=== PATIENT | female | born 1950 | race Caucasian/White ===

== ENCOUNTER 2016-11-07 05:25 | Inpatient (IN) | payer BC, OTHER ==
--- NOTE | 2016-09-25 10:10 | HISTORY & PHYSICAL EXAMINATION ---
DATE OF ADMISSION: 10/28/2016 CHIEF COMPLAINT: Right knee replacement. HISTORY OF PRESENT ILLNESS: Deja is a 65-year-old female who presents for preoperative evaluation prior to right knee replacement. She has been having pain in this knee for several years now, which has gradually worsened, now affecting daily activities including walking, standing, going up and down steps. She has tried oral anti-inflammatories including ibuprofen and Aleve, she also had multiple cortisone injections and viscosupplementation with no relief. At this point in time, she has failed conservative measures and would like to proceed with a right knee replacement. PAST MEDICAL HISTORY: High cholesterol. ALLERGIES: No known drug allergies. CURRENT MEDICATIONS: 1. Atorvastatin 20 mg daily. 2. Calcium. 3. Multivitamin. PAST SURGICAL HISTORY: 1. Left knee replacement. 2. Knee arthroscopy in 2005 with partial meniscectomy. FAMILY HISTORY: Significant for mother with diabetes, mother and father both with high blood pressure, both parents with high cholesterol. SOCIAL HISTORY: The patient is . Consumes 2-3 alcoholic beverages per week. Denies a history of smoking or tobacco use. No other tobacco use. REVIEW OF SYSTEMS: Otherwise negative. Please see HPI for pertinent positives. PHYSICAL EXAMINATION: GENERAL: A 65-year-old female in no acute distress, alert and oriented x3. HEENT: Normocephalic, atraumatic. CARDIAC: Regular rate and rhythm. No murmurs or gallops appreciated. Resting pulse 80 beats per minute. LUNGS: Clear to auscultation without rales or wheeze bilaterally. ABDOMEN: Soft, nontender. Bowel sounds present. EXTREMITIES: Right lower extremity is neurovascularly intact. Calves are soft and nontender. DP pulse +2. Demonstrates good quad tone. Straight leg raise without lag. No erythema or warmth. Has mild effusion. Overall has varus alignment. Has positive crepitation with motion. Range of motion is 0/5/10. IMAGING: Reviewed of the right knee shows findings consistent with degenerative joint disease including joint space narrowing, subchondral sclerosis and varus alignment. She also has degenerative changes of the patellofemoral joint. IMPRESSION: 1. Right knee degenerative joint disease. 2. High cholesterol. PLAN: Further care was discussed with patient. At this point in time, she has failed conservative measures and would like to proceed with a right knee replacement. We will place on aspirin 81 mg p.o. b.i.d. for a month postop. Otherwise, has no other questions or concerns, and did not have patient's account number at the time of dictation and therefore used her date of . [place]
[2016-09-25 14:23] VITALS: BMI 25.0
--- NOTE | 2016-09-25 14:58 | PAT Medication Instructions ---
Service Date Sep 25, 2016. Current Home Medication List Atorvastatin (Lipitor), 20 MG PO QAM Calcium (Caltrate), 600 MG PO QAM Multivitamin (Multivitamin), 1 TAB PO QAM [Fenoprofen], 1 TAB PO QAM Medication Instructions For Your Scheduled Surgery - Check with surgeon for instructions: [Fenoprofen], 1 TAB PO QAM - Hold the following medications the morning of surgery: Calcium (Caltrate), 600 MG PO QAM Multivitamin (Multivitamin), 1 TAB PO QAM - Take the following medications the morning of surgery with a sip of water: Atorvastatin (Lipitor), 20 MG PO QAM If you have any questions please call us at [phone] (Monique Blunt PA-C) or [phone] or [phone]
[2016-09-25 15:35] LABS: BASO % 0.4 %; BASO ABS # 0.02 K/uL (0-0.2); COMPLETE YES; EOS % 2.4 %; HEMATOCRIT 36.6 % (37-47); IG% 0.2 %; LYMPH % 25.6 %; MEAN CELL VOLUME 84.7 fL (80-100); MEAN CORPUSCULAR HEMOGLOBIN 28.5 pg (25-34); MEAN CORPUSCULAR HGB CONC 33.6 g/dl (32-36); MEAN PLATELET VOLUME 9.6 fL (7.4-10.4); MONO % 12.6 %; NEUT % 58.8 %; PLATELET COUNT 254 K/uL (130-400); RED BLOOD COUNT 4.32 M/uL (4.2-5.4); WHITE BLOOD COUNT 5.46 K/uL (4.8-10.8)
--- NOTE | 2016-09-25 15:42 | DIAGNOSTIC IMAGING REPORT ---
TWO VIEW CHEST CLINICAL HISTORY: Preoperative examination. FINDINGS: PA and lateral chest radiographs are compared to study dated 08/30/2007. The cardiomediastinal silhouette is unremarkable. There is mild atherosclerotic calcification of the thoracic aorta. The lungs and pleural spaces are clear. There is no pneumothorax. The skeletal structures are osteopenic. The bony thorax appears intact. IMPRESSION: No active disease in the chest. Electronically signed by: Herman Winchester M.D. 09/25/2016 3:41 PM
[2016-09-25 15:46] LABS: PROTHROMBIN TIME (PATIENT) 10.7 SECONDS (9.0-12.0)
[2016-09-25 17:49] LABS: BUN/CREATININE RATIO 28.3 (10-20); CREATININE 0.98 mg/dl (0.60-1.20); POTASSIUM 3.7 mmol/L (3.5-5.1)
[2016-09-25 20:42] LABS: CALCIUM 9.2 mg/dl (8.5-10.1)
[2016-09-26 07:34] LABS: ESTIMATED AVERAGE GLUCOSE 120 mg/dl; HA1C FLAG Normal (Normal)
[2016-11-07] VITALS (8 sets, daily range): BP systolic 127–172; BP diastolic 75–93; PULSE 70–79; TEMP 36.3–36.8; O2SAT 94–99; Ht 167.6 cm; Wt 69.9 kg
[~2016-11-07] VITALS: Ht 167.6 cm; Wt 69.9 kg
[~2016-11-07 05:25] MED LIST: ATOR-22 PO; CALCTAB5 PO; FENOPROFEN PO; MULT-506 PO
[2016-11-07] MEDS ORDERED: FAMOTIDINE 20 MG TAB PO SCH (06:00)
[2016-11-07] MEDS ORDERED: CeleBREX 200 MG CAP PO SCH (06:00)
[2016-11-07] MEDS ORDERED: ROPIVACAINE 5MG/ML 30 ML 150 MG, BUPIVACAINE/EPINEPHR 0.5% MPF 30 ML, KETOROLAC TROMETH... INFIL SCH ×7 (06:00)
[2016-11-07] MEDS ORDERED: DEXAMETHASONE 4 MG TAB PO SCH (06:00)
[2016-11-07] MEDS ORDERED: CEFAZOLIN 1000MG/55 ML D5W 55 ML IV SCH (06:00)
[2016-11-07] MEDS ORDERED: CEFAZOLIN 1000MG/55 ML D5W IV SCH (06:00)
[2016-11-07] MEDS ORDERED: METOCLOPRAMIDE HCL 10 MG TAB PO SCH (06:00)
[2016-11-07] MEDS ORDERED: LACTATED RINGER'S 1000ML IV SCH (06:00)
[2016-11-07] MEDS ORDERED: GABAPENTIN 300 MG CAP PO SCH (06:00)
[2016-11-07] MEDS ORDERED: ACETAMINOPHEN 500 MG TAB PO SCH (06:00)
[2016-11-07] MEDS ORDERED: LACTATED RINGER'S 500 ML IV SCH (06:00)
[2016-11-07] MEDS ORDERED: NURSING VERBAL MED ORDER ONE (06:15)
[2016-11-07] MEDS ORDERED: BUPIVACAINE 0.5 % 5 MG/1 ML PF 10ML VIAL ONE (06:29)
[2016-11-07] MEDS ORDERED: ONDANSETRON INJ 2 MG/ML 2 ML VIAL ONE (06:43)
[2016-11-07] MEDS ORDERED: DEXAMETHASONE SOD INJ 4 MG/ML VIAL ONE (06:43)
[2016-11-07] MEDS ORDERED: FENTANYL CITRATE INJ 50 MCG/1 ML 2 ML VIAL ONE (06:43)
[2016-11-07] MEDS ORDERED: LIDOCAINE HCL 2% 2 ML VIAL (20MG/ML) ONE (06:43)
[2016-11-07] MEDS ORDERED: MIDAZOLAM HCL 1 MG/ML 2ML VIAL ONE ×2 (06:43→07:24)
[2016-11-07] MEDS ORDERED: PROPOFOL IV EMULSION 10 MG/ML 20 ML VIAL IV ONE (06:43)
[2016-11-07] MEDS ORDERED: ORTHO JOINT ANESTHETIC ONE (06:54)
[2016-11-07] MEDS ORDERED: ATROPINE SULFATE 0.1 MG/ML 5ML SYR IV PRN (07:00)
[2016-11-07] MEDS ORDERED: EpHEDrine SULFATE INJ 50 MG/ML AMP IV PRN (07:00)
[2016-11-07] MEDS ORDERED: ONDANSETRON INJ 2 MG/ML 2 ML VIAL IV PRN ×2 (07:00→09:00)
[2016-11-07] MEDS ORDERED: FENTANYL CITRATE INJ 50 MCG/1 ML 2 ML VIAL IV PRN (07:00)
[2016-11-07] MEDS: TRANEXAMIC ACID INJ 1,000 MG in SODIUM CHLORIDE 0.9% 100ML 100 ML IV SCH ×2 (07:01→11:06)
--- NOTE | 2016-11-07 07:10 | History and Physical ---
History & Physical DATE OF ADMISSION: 11/07/2016 CHIEF COMPLAINT: Right knee replacement. HISTORY OF PRESENT ILLNESS: Deja is a 65-year-old female who presents for preoperative evaluation prior to right knee replacement. She has been having pain in this knee for several years now, which has gradually worsened, now affecting daily activities including walking, standing, going up and down steps. She has tried oral anti-inflammatories including ibuprofen and Aleve, she also had multiple cortisone injections and viscosupplementation with no relief. At this point in time, she has failed conservative measures and would like to proceed with a right knee replacement. PAST MEDICAL HISTORY: High cholesterol. ALLERGIES: No known drug allergies. CURRENT MEDICATIONS: 1. Atorvastatin 20 mg daily. 2. Calcium. 3. Multivitamin. PAST SURGICAL HISTORY: 1. Left knee replacement. 2. Knee arthroscopy in 2005 with partial meniscectomy. FAMILY HISTORY: Significant for mother with diabetes, mother and father both with high blood pressure, both parents with high cholesterol. SOCIAL HISTORY: The patient is . Consumes 2-3 alcoholic beverages per week. Denies a history of smoking or tobacco use. No other tobacco use. REVIEW OF SYSTEMS: Otherwise negative. Please see HPI for pertinent positives. PHYSICAL EXAMINATION: GENERAL: A 65-year-old female in no acute distress, alert and oriented x3. HEENT: Normocephalic, atraumatic. CARDIAC: Regular rate and rhythm. No murmurs or gallops appreciated. Resting pulse 80 beats per minute. LUNGS: Clear to auscultation without rales or wheeze bilaterally. ABDOMEN: Soft, nontender. Bowel sounds present. EXTREMITIES: Right lower extremity is neurovascularly intact. Calves are soft and nontender. DP pulse +2. Demonstrates good quad tone. Straight leg raise without lag. No erythema or warmth. Has mild effusion. Overall has varus alignment. Has positive crepitation with motion. Range of motion is 0/5/10. IMAGING: Reviewed of the right knee shows findings consistent with degenerative joint disease including joint space narrowing, subchondral sclerosis and varus alignment. She also has degenerative changes of the patellofemoral joint. IMPRESSION: 1. Right knee degenerative joint disease. 2. High cholesterol. PLAN: Further care was discussed with patient. At this point in time, she has failed conservative measures and would like to proceed with a right knee replacement. We will place on aspirin 81 mg p.o. b.i.d. for a month postop. Otherwise, has no other questions or concerns
--- NOTE | 2016-11-07 07:11 | History & Physical Bridge Note ---
H&P Re-Evaluation Bridge Note: I have examined the patient, reviewed the History & Physical and in the interval since the performance of the History & Physical I have noted the following changes of clinical significance: No changes noted
[2016-11-07] MEDS ORDERED: BACITRACIN 50000 UNIT VIAL IR ONE (08:03)
--- NOTE | 2016-11-07 08:11 | [facility] Post Operative Brief Note ---
Immediate Operative Summary Operative Date Nov 07, 2016. Pre-Operative Diagnosis Degenerative Joint Disease - Right Knee Post-Operative Diagnosis Degenerative Joint Disease - Right Knee Procedure(s) Performed Right Total Knee Arthroplasty Surgeon Dr. Abhinav Solano Body Designer Surgeon(s) Anthony Muse PA-C Estimated Blood Loss 5 ml Findings severe djd rt knee Specimens A. Right Knee Bone and Tissue Complication(s) None Disposition Recovery Room / PACU
[2016-11-07] MEDS ORDERED: POVIDONE-IODINE OP SOLN 30 ML BTL TOP ONE (08:20)
[2016-11-07] MEDS ORDERED: PHENYLEPHRINE 100MCG/ML 5ML SYR ONE (08:27)
--- NOTE | 2016-11-07 08:42 | OPERATIVE REPORT ---
DATE OF OPERATION: 11/07/2016 PREOPERATIVE DIAGNOSIS: Severe end-stage tricompartmental degenerative joint disease, right knee. POSTOPERATIVE DIAGNOSIS: Severe end-stage tricompartmental degenerative joint disease, right knee. PROCEDURE: Right total knee arthroplasty utilizing Ward \T\ Nephew Journey II patient matched block knee size 5 femur, 4 tibia, 13 poly, 32 oval patella. SURGEON: Dr. Solano. ELECTRICIAN OUTSIDE: Anthony Muse PA-C, who was necessary for prepping, draping, retraction, wound closure of deep fascia, subQ and skin and was necessary for the case. ESTIMATED BLOOD LOSS: 5 mL. COMPLICATIONS: None. TOURNIQUET TIME: 40 minutes. HISTORY OF PRESENT ILLNESS: The patient is a very pleasant 66-year-old white female who presents with complaints of severe end-stage degenerative joint disease attributable to her right knee. She has been nonresponsive to conservative therapy and presents today for right total knee arthroplasty. OPERATION AND FINDINGS: PROCEDURE: The patient was properly prepped and draped in supine position for total knee arthroplasty after identifying the appropriate surgical site. An anterior midline incision was made through the subcutaneous tissues down to the region of the extensor mechanism. A medial parapatellar incision was subsequently made. Meticulous hemostasis was obtained and performed at all times. The patella having been subluxed lateralward, medial and lateral meniscal remnants were excised. The patellar cut was then initially made and was sized to the appropriate size. After subluxing the tibia forward the appropriate meniscal fragments having been removed the distal femur was then cut first utilizing a Ward \T\ Nephew block. The distal femoral cuts and chamfer cuts were all made under direct visualization and the proximal tibial osteotomy cut was also made utilizing Ward \T\ Nephew blocks and checked with an extramedullary guide. The appropriate trial components on the femur and tibia were placed. Appropriate trial spacers were used to check flexion and extension gaps. With flexion and extension gaps being equal, the components were then subsequently after thorough irrigation and debridement lavage components were then subsequently cemented in the following order: femur, tibia and patella. Exparel was used for intraoperative anesthesia, the medial parapatellar incision was closed utilizing #1 Vicryl, subQ was closed with 2-0 Vicryl, skin was closed with skin clips. A sterile compression dressing was placed. The patient was taken to recovery room in stable condition. Due to the complex nature of the procedure, the entire surgery was performed with the operational assistance of Anthony Muse PA-C. The physical laboratory assistant, under direct supervision, was involved in the actual performance of all aspects of the surgical procedure including hemostasis, tissue retraction and incision, instrument management, patient positioning, and wound closure. I attest to the content of the Intraoperative Record and any orders documented therein. Any exceptio ns are noted below.
[2016-11-07] MEDS ORDERED: MoRPHine SULFATE 2 MG/ML CARP IV PRN (09:00)
[2016-11-07] MEDS ORDERED: MAGNESIUM HYDROXIDE SUSP 30 ML UDC PO PRN (09:00)
[2016-11-07] MEDS ORDERED: OXYCODONE HCL 10 MG TABCR (OXYCONTIN) PO SCH (09:00)
[2016-11-07] MEDS ORDERED: SOD PHOSPHATE/SOD BIPHOSPHATE ENEMA 132 ML BTL PR PRN (09:00)
[2016-11-07] MEDS ORDERED: BISACODYL 10 MG SUPP PR PRN (09:00)
[2016-11-07] MEDS ORDERED: ALUMINUM/MAGNESIUM/SIMETH (MAALOX MAX) 30 ML UDC PO PRN (09:00)
[2016-11-07] MEDS: PANTOprazole SOD 40 MG TAB PO SCH ×2 (09:00→12:39)
[2016-11-07] MEDS ORDERED: KETOROLAC TROMETHAMINE 15 MG/ML VIAL IV. PRN ×2 (09:00→10:15)
[2016-11-07] MEDS ORDERED: OXYCODONE HCL IR 5 MG TAB (IMMEDIATE RELEASE) PO PRN (09:00)
--- NOTE | 2016-11-07 09:32 | DIAGNOSTIC IMAGING REPORT ---
RIGHT KNEE 1 OR 2 VIEWS ROUTINE CLINICAL HISTORY: Postoperative evaluation. COMPARISON: None FINDINGS: Alignment of the total right knee arthroplasty is anatomic. There is no fracture or unexpected radiopaque foreign body. Drain is in place. IMPRESSION: Expected findings following total right knee arthroplasty. Electronically signed by: Barney Ayala M.D. 11/07/2016 9:31 AM Dictated Date/Time: 11/07/2016 9:19 AM
--- NOTE | 2016-11-07 09:32 | Anesthesiology Progress Note ---
Anesthesia Post Op Note Date & Time Nov 07, 2016 at 09:32 Vital Signs Pain Intensity: 0 Vital Signs Past 12 Hours Date Time Temp Pulse Resp B/P Pulse Ox O2 Delivery O2 Flow Rate FiO2 11/07/16 09:30 36.6 71 16 131/78 98 Nasal Cannula 2 11/07/16 09:20 71 14 129/72 98 Nasal Cannula 3 11/07/16 09:10 75 14 140/77 98 Nasal Cannula 3 11/07/16 09:00 75 14 122/73 98 Nasal Cannula 3 11/07/16 08:52 36.5 81 14 123/76 96 Nasal Cannula 3 11/07/16 05:50 36.8 74 16 172/93 97 Room Air Notes Mental Status: alert / awake / arousable, participated in evaluation Pt Amnestic to Procedure: Yes Nausea / Vomiting: adequately controlled Pain: adequately controlled Airway Patency, RR, SpO2: stable & adequate BP & HR: stable & adequate Hydration State: stable & adequate Neuraxial Anesthesia: was administered, sensory block is resolving Anesthetic Complications: no major complications apparent
[2016-11-07] MEDS ORDERED: MoRPHine SULFATE 10 MG/ML CARP/VIAL IV PRN (10:00)
[2016-11-07] MEDS ORDERED: MoRPHine SULFATE 4 MG/ML 1 ML CARP\\VIAL IV PRN (10:00)
[2016-11-07] MEDS: D5W AND 1/2NSS + 20MEQ KCL 1,000 ML IV SCH ×2 (11:12→20:34)
[2016-11-07] MEDS: FERROUS GLUCONATE 324 MG TAB PO SCH ×2 (14:29→17:44)
[2016-11-07] MEDS: ACETAMINOPHEN 500 MG TAB PO SCH ×2 (14:29→21:33)
[2016-11-07] MEDS ORDERED: INFLUENZA ADMINISTRATION CHARGE ONE (14:45)
[2016-11-07] MEDS ORDERED: PNEUMOCOCCAL ADMINISTRATION CHARGE ONE (14:45)
[2016-11-07] MEDS ORDERED: INFLUENZA VIRUS QUAD VACCINE 0.5 ML SYR IM. ONE (14:45)
[2016-11-07] MEDS ORDERED: PNEUMOCOCCAL POLYSACCHARIDES 25 MCG/0.5 ML VIAL/SYR IM. ONE (14:45)
[2016-11-07] MEDS: CEFAZOLIN IV 1,000 MG in DEXTROSE 5% 50ML 50 ML IV SCH ×2 (16:49→23:36)
[2016-11-07] MEDS: DOCUSATE SODIUM 100 MG CAP PO SCH (20:33)
[2016-11-07] MEDS: SENNA 8.6 MG TAB PO SCH (20:33)
[2016-11-07] MEDS: ASPIRIN 81 MG ECTAB PO SCH (20:33)
[2016-11-07] MEDS: OXYCODONE HCL 10 MG TABCR (OXYCONTIN) PO SCH (20:34)
[2016-11-08] VITALS (7 sets, daily range): BP systolic 105–157; BP diastolic 64–84; PULSE 64–81; TEMP 36.4–36.7; O2SAT 95–100
[2016-11-08] MEDS: ACETAMINOPHEN 500 MG TAB PO SCH ×3 (05:33→21:04)
[2016-11-08] MEDS: D5W AND 1/2NSS + 20MEQ KCL 1,000 ML IV SCH (05:34)
[2016-11-08 05:56] LABS: HEMATOCRIT 29.1 % (37-47); MEAN CELL VOLUME 82.7 fL (80-100); MEAN CORPUSCULAR HEMOGLOBIN 28.1 pg (25-34); MEAN PLATELET VOLUME 9.6 fL (7.4-10.4); PLATELET COUNT 273 K/uL (130-400); RED BLOOD COUNT 3.52 M/uL (4.2-5.4); WHITE BLOOD COUNT 19.94 K/uL (4.8-10.8)
[2016-11-08 06:08] LABS: PROTHROMBIN TIME (PATIENT) 10.8 SECONDS (9.0-12.0)
[2016-11-08 06:23] LABS: BUN/CREATININE RATIO 19.2 (10-20); CALCIUM 8.4 mg/dl (8.5-10.1); CREATININE 0.99 mg/dl (0.60-1.20); POTASSIUM 4.6 mmol/L (3.5-5.1)
--- NOTE | 2016-11-08 07:51 | Orthopedic Progress Note ---
Orthopedic Progress Note Date of Service Nov 08, 2016. Subjective Post OP Day: 1 Reports: feeling well, pain controlled w PO medications, Denies: complaints Objective calves soft nontender, N/V intact, dressing C/D/I, A&O x3, toes mobile, hemovac drainage (140ml latest shift...) Date Time Temp Pulse Resp B/P Pulse Ox O2 Delivery O2 Flow Rate FiO2 11/08/16 04:00 36.5 81 18 125/76 95 Room Air 11/07/16 23:35 36.3 77 18 131/78 95 Room Air 11/07/16 20:07 36.7 79 16 164/84 97 Room Air 11/07/16 19:15 Room Air 11/07/16 15:08 36.7 75 16 142/77 94 Room Air 11/07/16 12:42 78 16 127/78 99 Room Air 11/07/16 11:34 36.3 76 19 163/83 98 Room Air 11/07/16 10:21 70 17 137/82 99 Nasal Cannula 2.0 11/07/16 09:45 98 Nasal Cannula 2.0 11/07/16 09:45 36.3 72 16 130/75 98 Nasal Cannula 2.0 11/07/16 09:45 98 Nasal Cannula 2.0 11/07/16 09:30 36.6 71 16 131/78 98 Nasal Cannula 2 11/07/16 09:20 71 14 129/72 98 Nasal Cannula 3 11/07/16 09:10 75 14 140/77 98 Nasal Cannula 3 11/07/16 09:00 75 14 122/73 98 Nasal Cannula 3 11/07/16 08:52 36.5 81 14 123/76 96 Nasal Cannula 3 Laboratory Results 24 Hours: Test 11/08/16 05:30 Hematocrit 29.1 % Hemoglobin 9.9 g/dL Prothromb Time International Ratio 1.0 Prothrombin Time 10.8 SECONDS Assessment & Plan Assessment: POD 1 s/p Right TKA Plan: PT/OT Recheck drainage totals after PT Possible dc to home today vs tomorrow. Planning for OPPT Inhouse Planning Pain Management: Celebrex, Oxycontin, Morphine, PO Tylenol, Oxy IR DVT Prophylaxis: TEDs, SCDs, ASA Discharge Planning Discharge Planning: home with oppt Pain Management: Celebrex, Oxycontin, Oxy IR DVT Prophylaxis: TEDs, ASA Therapy: Physical Therapy
[2016-11-08] MEDS: ATORVASTATIN 20 MG TAB PO SCH (08:32)
[2016-11-08] MEDS: CALCIUM 600MG + VIT D 400 IU TAB PO SCH (08:32)
[2016-11-08] MEDS: FERROUS GLUCONATE 324 MG TAB PO SCH ×3 (08:32→17:39)
[2016-11-08] MEDS: PANTOprazole SOD 40 MG TAB PO SCH (08:32)
[2016-11-08] MEDS: ASPIRIN 81 MG ECTAB PO SCH ×2 (08:32→21:01)
[2016-11-08] MEDS: DOCUSATE SODIUM 100 MG CAP PO SCH ×2 (08:33→21:02)
[2016-11-08] MEDS: MULTIVITAMIN TAB PO SCH (08:33)
[2016-11-08] MEDS: OXYCODONE HCL 10 MG TABCR (OXYCONTIN) PO SCH ×2 (08:33→21:01)
--- NOTE | 2016-11-08 13:26 | Discharge Instructions ---
Discharge Instructions Admission Reason for Admission: Right Knee Osteoarthritis Discharge Discharge Diagnosis / Problem: Right Total Knee Replacement Discharge Goals Goal(s): Decrease discomfort, Improve function, Increase independence Activity Recommendations Activity Limitations: as noted below Weightbearing Status: Right weightbearing (as tolerated) . Instructions / Follow-Up Instructions / Follow-Up ACTIVITY RECOMMENDATIONS: SELF CARE INSTRUCTIONS AFTER TOTAL KNEE REPLACEMENT A. You may need to continue a physical therapy program after discharge from the hospital. There are several options available to you. Your doctor will assist you in selecting the best one for you. 1. An out-patient facility 2 to 3 times a week for therapy or home therapy. 2. Continue working on all exercises taught to you in the hospital. Your goals should be to increase bending of your knee to 90 degrees and beyond and to fully straighten your knee. B. You may progress at your own pace from walking with a walker or crutches to a cane; then to no assistive devices. C. Make walking a part of your daily routine. Be up as much as comfortable with rest periods throughout the day. Rest with leg elevation is very important. Use the ice wrap frequently for the first 3-4 weeks. D. There are no restrictions on activities. You may ride in a car, shop, participate in oracle database consultant and all social activities. E. Wear the long elastic stockings (MADELIN hose) 20 hours a day for 2 weeks after surgery. They can be removed several times a day for laundering and for a bath. F. You may shower, no tub baths until cleared by your doctor. SPECIAL CARE INSTRUCTIONS: VERY IMPORTANT TO READ AND REVIEW A. There are a few signs you need to watch for after you are home. Call [facility] if you notice any of the followin. Increased severe knee pain. Some pain is expected especially when you exercise. 2. Increased swelling in your leg or knee; pain or swelling of the calf muscle in either lower leg. 3. Any fluid drainage from the incision. 4. Shortness of breath or chest pain. B. Please call [facility] at if you have any concerns or questions about your operation or recovery. The doctor or his nurse will return your call promptly. C. You must take antibiotics before dental work, bladder, bowel or other surgery. Your doctor will provide you with a permanent care to carry describing this precaution. IMPORTANT: * REMEMBER TO TAKE ASPIRIN, 81 MG, TWICE DAILY FOR 4 WEEKS UNLESS OTHERWISE DIRECTED. THIS IS YOUR BLOOD THINNER. * HIGH RISK PATIENTS MAY BE PRESCRIBED A STRONGER BLOOD THINNER. THIS WILL BE PROVIDED AT DISCHARGE. * CALL IF INCREASED PAIN, REDNESS, DRAINAGE OR FEVER GREATER THAT 101. * WEAR MADELIN HOSE 20 HOURS PER DAY FOR 2 WEEKS. * DERMABOND Prineo- This is a mesh tape dressing that is covered with glue. It should remain in place until the incision is properly healed, usually 10-14 days. This dressing is designed to naturally slough off. You may trim the excess mesh tape as it peels off. Incision may be briefly wet in a shower. Dry immediately by blotting with a clean, dry towel. Do not bath or swim until instructed by your doctor. Do not scratch, rub, or pick at the dressing. Do not apply any topical ointments or lotions until dressing is completely removed and/or instructed by your doctor. There may be a small piece of suture material at one end of your incision. Do not pull or trim this. If it is bothersome or catching on clothing, you may cover it with a band-aid. FOLLOW UP VISIT: If appointment is not already scheduled: Please call [facility] to make a follow-up appointment for 2 weeks after your surgery at . Current Hospital Diet Patient's current hospital diet: Regular Diet Discharge Diet Recommended Diet: Regular Diet Procedures Procedures Performed: Right Total Knee Arthroplasty Pending Studies Studies pending at discharge: no Laboratory Results Hemoglobin A1c Test 09/25/16 15:10 Range/Units Estimated Average Glucose 120 mg/dl Hemoglobin A1c 5.8 H 4.5-5.6 % Medical Emergencies . Who to Call and When: Medical Emergencies: If at any time you feel your situation is an emergency, please call 911 immediately. . Non-Emergent Contact Non-Emergency issues call your: Primary Care Provider, Surgeon . "Provider Documentation" section prepared by Anthony Muse. VTE Core Measure Inpt VTE Proph given/why not?: Other Anticoagulation (ASA 81mg po bid x 1 month ), T.E.D. Stockings, SCD's
[2016-11-08] MEDS: SENNA 8.6 MG TAB PO SCH (21:03)
[2016-11-08] MEDS: CeleBREX 200 MG CAP PO SCH (21:03)
[2016-11-09 00:05] VITALS: BP 138/76; PULSE 78; TEMP 36.7; O2SAT 95
[2016-11-09] MEDS: ACETAMINOPHEN 500 MG TAB PO SCH (05:35)
[2016-11-09 07:14] VITALS: BP 125/73; PULSE 72; TEMP 36.7; O2SAT 96
--- NOTE | 2016-11-09 07:57 | Orthopedic Progress Note ---
Orthopedic Progress Note Date of Service Nov 09, 2016. Subjective Post OP Day: 2 Reports: feeling well, pain controlled w PO medications, Denies: SOB, calf pain , chest pain, complaints, light headedness, nausea / vomiting Objective calves soft nontender, N/V intact, capillary refill less than 2 sec., incision C /D/I, A&O x3, toes mobile Date Time Temp Pulse Resp B/P Pulse Ox O2 Delivery O2 Flow Rate FiO2 11/09/16 07:51 Room Air 11/09/16 07:14 36.7 72 16 125/73 96 Room Air 11/09/16 00:15 Room Air 11/09/16 00:05 36.7 78 18 138/76 95 Room Air 11/08/16 19:15 Room Air 11/08/16 14:59 36.4 64 17 157/81 100 Room Air 11/08/16 14:23 76 96 11/08/16 12:21 100 Room Air 11/08/16 12:18 36.7 69 16 105/64 100 Room Air 11/08/16 07:58 96 Assessment & Plan Assessment: POD 2 s/p Right TKA Plan: PT/OT plan for d/c home later today after PT. pain well controlled, VSS. stable for d/ c Discharge Planning Discharge Planning: home with oppt Pain Management: Celebrex, Oxycontin, Oxy IR DVT Prophylaxis: TEDs, ASA Therapy: Physical Therapy
[2016-11-09] MEDS ORDERED: OXYSR10 PO (08:02)
[2016-11-09] MEDS ORDERED: ASPEC81 PO (08:02)
[2016-11-09] MEDS ORDERED: RXC5 PO (08:02)
[2016-11-09] MEDS ORDERED: CLB200 PO (08:02)
[2016-11-09] MEDS ORDERED: ACET-1138 PO (08:02)
[2016-11-09] MEDS ORDERED: CLC100 PO (08:02)
[2016-11-09] MEDS ORDERED: ONDA8TAB6 PO (08:02)
--- NOTE | 2016-11-09 08:05 | Discharge Summary ---
Orthopedic Discharge Summary Admission Date/Reason Nov 07, 2016 at 08:35 Right Knee Osteoarthritis. Discharge Date/Disposition Nov 09, 2016 Home with services Diagnosis Principal Diagnosis: Right Knee arthritis Procedure(s) Performed Right TKA Consultations NONE Medication Reconciliation New Medications: Ondansetron Hcl (Zofran) 8 Mg Tab 8 MG PO Q8 PRN for Nausea, #20 TAB Acetaminophen (Tylenol Extra Strength) 500 Mg Tab 1000 MG PO Q8, #126 TAB Aspirin (Aspirin EC Low Dose) 81 Mg Ectab 81 MG PO BID for 30 Days Celecoxib (Celebrex) 200 Mg Cap 200 MG PO BID, #60 CAP Docusate Sodium (Docusate Sodium) 100 Mg Cap 100 MG PO BID for 15 Days, #30 CAP Oxycodone HCl (Oxycontin) 10 Mg Tabcr 10 MG PO Q12, #20 Oxycodone HCl (Oxycodone HCl) 5 Mg Tab 5-10 MG PO Q4H PRN for Pain, #60 TAB Continued Medications: Atorvastatin (Lipitor) 20 Mg Tab 20 MG PO QAM, TAB Calcium (Caltrate) 600 Mg Tab 600 MG PO QAM, 0 Refills Discontinued Medications: [Fenoprofen] () 1 TAB PO QAM Admission Physical Exam As per Admitting History & Physical. Hospital Course Patient was a same day admission after undergoing a successful right TKA. she tolerated the procedure well. Post-operatively, her activity was progressed and well tolerated. Please refer to daily progress notes and PT notes for complete details. After exam on 11/09/16, patient felt to be stable for discharge home with outpatient PT. Patient will f/u in the office in 2 weeks for further evaluation including x-rays and incision check, sooner if having any issues or concerns. Below are pertinent labs/studies during their hospital stay: Last Vital Signs Documentation Date Time Temp Pulse Resp B/P Pulse Ox O2 Delivery O2 Flow Rate FiO2 11/09/16 07:51 Room Air 11/09/16 07:14 36.7 72 16 125/73 96 11/07/16 10:21 2.0 Last Resulted CBC 11/08/16 05:30 Last Resulted BMP 11/08/16 05:30 Discharge Instructions ACTIVITY RECOMMENDATIONS: SELF CARE INSTRUCTIONS AFTER TOTAL KNEE REPLACEMENT A. You may need to continue a physical therapy program after discharge from the hospital. There are several options available to you. Your doctor will assist you in selecting the best one for you. 1. An out-patient facility 2 to 3 times a week for therapy or home therapy. 2. Continue working on all exercises taught to you in the hospital. Your goals should be to increase bending of your knee to 90 degrees and beyond and to fully straighten your knee. B. You may progress at your own pace from walking with a walker or crutches to a cane; then to no assistive devices. C. Make walking a part of your daily routine. Be up as much as comfortable with rest periods throughout the day. Rest with leg elevation is very important. Use the ice wrap frequently for the first 3-4 weeks. D. There are no restrictions on activities. You may ride in a car, shop, participate in linoleum floor layer and all social activities. E. Wear the long elastic stockings (MADELIN hose) 20 hours a day for 2 weeks after surgery. They can be removed several times a day for laundering and for a bath. F. You may shower, no tub baths until cleared by your doctor. SPECIAL CARE INSTRUCTIONS: VERY IMPORTANT TO READ AND REVIEW A. There are a few signs you need to watch for after you are home. Call [facility] if you notice any of the followin. Increased severe knee pain. Some pain is expected especially when you exercise. 2. Increased swelling in your leg or knee; pain or swelling of the calf muscle in either lower leg. 3. Any fluid drainage from the incision. 4. Shortness of breath or chest pain. B. Please call [facility] at if you have any concerns or questions about your operation or recovery. The doctor or his nurse will return your call promptly. C. You must take antibiotics before dental work, bladder, bowel or other surgery. Your doctor will provide you with a permanent care to carry describing this precaution. IMPORTANT: * REMEMBER TO TAKE ASPIRIN, 81 MG, TWICE DAILY FOR 4 WEEKS UNLESS OTHERWISE DIRECTED. THIS IS YOUR BLOOD THINNER. * HIGH RISK PATIENTS MAY BE PRESCRIBED A STRONGER BLOOD THINNER. THIS WILL BE PROVIDED AT DISCHARGE. * CALL IF INCREASED PAIN, REDNESS, DRAINAGE OR FEVER GREATER THAT 101. * WEAR MADELIN HOSE 20 HOURS PER DAY FOR 2 WEEKS. * DERMABOND Prineo- This is a mesh tape dressing that is covered with glue. It should remain in place until the incision is properly healed, usually 10-14 days. This dressing is designed to naturally slough off. You may trim the excess mesh tape as it peels off. Incision may be briefly wet in a shower. Dry immediately by blotting with a clean, dry towel. Do not bath or swim until instructed by your doctor. Do not scratch, rub, or pick at the dressing. Do not apply any topical ointments or lotions until dressing is completely removed and/or instructed by your doctor. There may be a small piece of suture material at one end of your incision. Do not pull or trim this. If it is bothersome or catching on clothing, you may cover it with a band-aid. FOLLOW UP VISIT: If appointment is not already scheduled: Please call [facility] to make a follow-up appointment for 2 weeks after your surgery at .
[2016-11-09] MEDS: FERROUS GLUCONATE 324 MG TAB PO SCH ×2 (08:30→13:06)
[2016-11-09] MEDS: PANTOprazole SOD 40 MG TAB PO SCH (09:00)
[2016-11-09] MEDS: OXYCODONE HCL 10 MG TABCR (OXYCONTIN) PO SCH (09:27)
[2016-11-09] MEDS: MULTIVITAMIN TAB PO SCH (09:28)
[2016-11-09] MEDS: ASPIRIN 81 MG ECTAB PO SCH (09:28)
[2016-11-09] MEDS: CALCIUM 600MG + VIT D 400 IU TAB PO SCH (09:29)
[2016-11-09] MEDS: ATORVASTATIN 20 MG TAB PO SCH (09:29)
[2016-11-09] MEDS: DOCUSATE SODIUM 100 MG CAP PO SCH (09:29)
[2016-11-09] MEDS: CeleBREX 200 MG CAP PO SCH (09:30)
[2016-11-09 09:57] VITALS: BP 125/73; PULSE 72; TEMP 36.7; O2SAT 96
== END 2016-11-09 13:41 | disposition home health service (06) | DRG 470 ==
LOC: ENRESERVDT → ENRESERVTM → C.ACU 05:25 → C.3E 08:35
PROVIDERS: ADMIT Orthopaedic Surgery; ATTEND Orthopaedic Surgery
PROC: 0SRC0J9 Replacement of Right Knee Joint with Synthetic Substitute, Cemented, Open Approach (ICD-10-PCS; principal; 2016-11-07 07:15)
DX: M17.11 Unilateral primary osteoarthritis, right knee (principal); E78.00 Pure hypercholesterolemia, unspecified; Z96.652 Presence of left artificial knee joint; Z79.899 Other long term (current) drug therapy

== ENCOUNTER 2024-11-19 10:55 | Observation (INO) ==
--- NOTE | 2024-10-27 11:14 | PAT Medication Instructions ---
Medication Instructions Date of Service October 27, 2024 Home Medications Probiotic 1 cap PO QPM Vitamin C 1 cap PO HS atorvastatin 20 mg tablet 20 mg PO QAM biotin 1,000 mcg chewable tablet 1,000 mcg PO QAM calcium 600 mg (as carbonate)-vitamin D3 20 mcg (800 unit) tablet (Caltrate with Vitamin D3) 1 tab PO QAM cholecalciferol (vitamin D3) 25 mcg (1,000 unit) capsule (Vitamin D3) 25 mcg PO QAM losartan 50 mg tablet 50 mg PO BID multivitamin 1 tab PO HS DO NOT take the morning of surgery biotin 1,000 mcg chewable tablet 1,000 mcg PO QAM calcium 600 mg (as carbonate)-vitamin D3 20 mcg (800 unit) tablet (Caltrate with Vitamin D3) 1 tab PO QAM cholecalciferol (vitamin D3) 25 mcg (1,000 unit) capsule (Vitamin D3) 25 mcg PO QAM losartan 50 mg tablet 50 mg PO BID Take morning of surgery With a small sip of water, OTHERWISE NOTHING TO EAT OR DRINK AFTER MIDNIGHT: atorvastatin 20 mg tablet 20 mg PO QAM Take evening before surgery Probiotic 1 cap PO QPM Vitamin C 1 cap PO HS losartan 50 mg tablet 50 mg PO BID multivitamin 1 tab PO HS Other Notes If you have any questions please call us at [phone] or [phone] or [phone] or [phone]
--- NOTE | 2024-11-05 09:41 | Anesthesiology Consultation ---
Date of Service November 05, 2024 Assessment & Plan (1) Encounter for pre-operative examination: - PAT testing to be faxed to PCP, Dr. Jayme Carrasco, patient states PCP will then send clearance. Chart Review Chart Review: Pending: Refer to Additional Notes / Consult section and Patient seen in Pre Admission Testing Teaching & Discussion Pre-Anesthesia Teaching/Discussion Notes: Instructed NPO after midnight before surgery, except medications with 15 cc of water. Medication instructions provided according to the PAT guidelines. History Surgery Operation Date: 11/19/24 07:15 Proposed Procedures p Right Shoulder Total Arthroplasty, Right Shoulder Biceps Tenodesis - Flaquito Sloan MD s Right Shoulder Rotator Cuff Repair with [employer]plant - Flaquito Sloan MD Height/Weight Height: 5 ft 4 in Weight: 68.4 kg Allergies Allergy/AdvReac Type Severity Reaction Status Date / Time No Known Allergies Allergy Unknown Verified 10/24/24 11:44 Medications Home Medications Medication Instructions Recorded Confirmed Last Taken Probiotic 1 cap PO QPM 10/24/24 10/24/24 Unknown Vitamin C 1 cap PO HS 10/24/24 10/24/24 Unknown atorvastatin 20 mg tablet 20 mg PO QAM 10/24/24 10/24/24 Unknown biotin 1,000 mcg chewable tablet 1,000 mcg PO QAM 10/24/24 10/24/24 Unknown calcium 600 mg (as 1 tab PO QAM 10/24/24 10/24/24 Unknown carbonate)-vitamin D3 20 mcg (800 unit) tablet (Caltrate with Vitamin D3) cholecalciferol (vitamin D3) 25 25 mcg PO QAM 10/24/24 10/24/24 Unknown mcg (1,000 unit) capsule (Vitamin D3) losartan 50 mg tablet 50 mg PO BID 10/24/24 10/24/24 Unknown multivitamin 1 tab PO HS 10/24/24 10/24/24 Unknown Past Medical History Medical History (Updated 11/05/24 @ 09:55 by Socorro Espinal PA-C) Hypertension controlled, stable per pt Patient denies h/o stroke, seizures, heart attack, heart failure, DM, blood clots/DVTs or blood transfusions. Exercise / Class Metabolic Activity II 4-5 Yardwork/Stairs/Walk up hill (denies chest discomfort or shortness of breath with one flight of stairs) Past Surgical History Surgical History (Updated 11/05/24 @ 09:56 by Socorro Espinal PA-C) History of surgery (~2021) right femur fracture-hardware in place History of total knee arthroplasty Bilateral Hx of dilation and curettage Hx of wisdom tooth extraction Past Anesthesia History No Hx of Anesthesia Complications and Other (father with cardiac arrest during spinal surgery-age late 70s-early 80s) History of PONV No Hx of PONV and No Hx of Motion Sickness Social History Smoking Status: Never smoker Do You Dip or Chew Tobacco: No Hx Alcohol Use: Yes Alcohol type: wine alcohol intake frequency: a few times a month Hx Substance Use: No substance use type: does not use Review of Systems Occasionally wakes up from snoring, denies witnessed apneas. Patient denies chest pain, shortness of breath, dyspnea on exertion, reflux, fever, chills, cough, wheezing, or palpitations. Physical Exam Vital Signs Vitals BP 128/86 P 74 TEMP 97.7 SP02 97% on RA RESP 18 Physical Patient resting comfortably in chair in no acute distress, alert and oriented, responding appropriately throughout visit Full cervical extension range of motion without pain TMD 3.5 finger breadths Mallampati Score 2 Dentition: crown and implant; denies chipped or loose teeth, or bridges Lungs: normal respiratory effort. Good air movement, clear throughout to auscultation, no adventitious breath sounds Cardiac: regular rate and rhythm, no murmurs noted Carotid arteries: negative bruit bilat Lab Results Anesthesia Preop Results Results Anesthesia Widget: WBC 8.36 K/ul (4.8-10.8) 11/05/24 Hgb 13.9 g/dl (12.0-16.0) 11/05/24 Hct 42.9 % (37.0-47.0) 11/05/24 Plt 339 K/uL (130-400) 11/05/24 Na 141 mmol/L (136-145) 11/05/24 K 4.2 mmol/L (3.5-5.1) 11/05/24 Cl 104 mmol/L (98-107) 11/05/24 CO2 27 mmol/L (21-32) 11/05/24 BUN 21 mg/dl (6-23) 11/05/24 Creat 0.94 mg/dl (0.6-1.2) 11/05/24 Glucose Level 97 mg/dl (70-99(Fasting)) 11/05/24 PT 10.4 Seconds (9.0-12.0) 11/05/24 PTT 25 Seconds (21-31) 11/05/24 INR 1.0 (0.9-1.1) 11/05/24 Urine Color Yellow 11/05/24 Urine Appearance Clear (Clear) 11/05/24 Urine pH 7.5 (4.5-7.5) 11/05/24 Urine Specific [place] 1.006 (1.000-1.030) 11/05/24 Urine Protein Negative (Negative) 11/05/24 Urine Glucose (UA) Negative (Negative) 11/05/24 Urine Ketones Negative (Negative) 11/05/24 Urine Blood Negative (Negative) 11/05/24 Urine Nitrite Negative (Negative) 11/05/24 Urine Bilirubin Negative (Negative) 11/05/24 Urine Urobilinogen Negative (Negative) 11/05/24 Urine Leukocyte Esterase 1+ (Negative) H 11/05/24 Urine WBC (Auto) 0-5 /hpf (0-5) 11/05/24 Urine RBC (Auto) 0-2 /hpf (0-2) 11/05/24 Urine Hyaline Casts (Auto) 0-2 /lpf (0-2) 11/05/24 Urine Epithelial Cells (Auto) 0-2 /hpf (0-2) 11/05/24 Urine Bacteria (Auto) None Seen (None Seen) 11/05/24 Blood Type A Positive 11/05/24 Antibody Screen NEGATIVE 11/05/24 Testing Electrocardiogram Date: 11/05/24 NSR, rate 68 bpm Left axis deviation Cannot rule out anterior infarct, age undetermined Nonspecific ST abnormality When compared with 09/25/16 EKG, QRS axis shifted left Chest X-Ray Date: 11/05/24 No acute chest disease.
--- NOTE | 2024-11-17 21:50 | History & Physical Report ---
Date of Service November 17, 2024 Assessment & Plan (1) Osteoarthritis of both glenohumeral joints: Plan: Severe end-stage bilateral glenohumeral osteoarthritis. Right shoulder also has biceps tendinopathy and a labral tear. Plan is to proceed with an anatomic right total shoulder replacement and labral debridement biceps tenodesis and add [employer] bio inductive collagen implant to the rotator cuff to augment the tissue. Will required staged shoulder replacements. History of Present Illness Chief Complaint: Bilateral shoulder pain right greater than left Primary Care Provider: NO PCP 74-year-old female with chronic bilateral shoulder osteoarthritis. patient denies headaches, sweats, fevers, chills, double vision, blurred vision, cough, sore throat, dysphagia, chest pain, sob, wheezing, n/v/d/c, numbness, tingling, fatigue, urinary symptoms, mood disorder. Allergies Allergy/AdvReac Type Severity Reaction Status Date / Time No Known Allergies Allergy Unknown Verified 10/24/24 11:44 Home Medications Medication Instructions Recorded Confirmed Type Probiotic 1 cap PO QPM 10/24/24 10/24/24 History Vitamin C 1 cap PO HS 10/24/24 10/24/24 History atorvastatin 20 mg tablet 20 mg PO QAM 10/24/24 10/24/24 History biotin 1,000 mcg chewable tablet 1,000 mcg PO QAM 10/24/24 10/24/24 History calcium 600 mg (as 1 tab PO QAM 10/24/24 10/24/24 History carbonate)-vitamin D3 20 mcg (800 unit) tablet (Caltrate with Vitamin D3) cholecalciferol (vitamin D3) 25 25 mcg PO QAM 10/24/24 10/24/24 History mcg (1,000 unit) capsule (Vitamin D3) losartan 50 mg tablet 50 mg PO BID 10/24/24 10/24/24 History multivitamin 1 tab PO HS 10/24/24 10/24/24 History Past Med/Surg History Problem List (Updated 11/17/24 @ 21:47 by Flaquito Sloan MD) Osteoarthritis of both glenohumeral joints Encounter for pre-operative examination Medical History Hypertension controlled, stable per pt Surgical History History of surgery (~2021) right femur fracture-hardware in place Hx of wisdom tooth extraction Hx of dilation and curettage History of total knee arthroplasty Bilateral Social History Smoking Status: Never smoker Second Hand Exposure: No; Do You Dip or Chew Tobacco: No; Tobacco Cessation Education Requested by Patient: No Hx Alcohol Use: Yes Alcohol type: wine Hx Substance Use: No Preferred Language: Sinhala Communication Ability: Effective Chair Maker Required: No Beliefs That Will Affect Care: None Current Living Situation: Alone Other Information That Helps Us Care for You: No Feels Safe at Home: Yes Safety Concerns: Feels Safe At This Time Assistive Devices: Glasses and Other Assistive Devices Comment: Dental implant Review of Systems All systems reviewed & are unremarkable except as noted in HPI & below Physical Exam Constitutional: WD/WN, vitals as above Respiratory: normal respiratory effort; no respiratory distress Cardiovascular: Rate/Rhythm: regular rate and regular rhythm Musculoskeletal: Right shoulder with abnormal rhythm glenohumeral crepitation painful range of motion active range of motion 150 degrees flexion internal rotation L1 external rotation 45 internal rotation 40 degrees. Strength is normal neurovascular exam intact. Left shoulder has similar findings to right including glenohumeral crepitation and more limitation of rotation behind the back only to S1 also with normal strength and neurological exam. Skin: no rashes, warm and dry Neurologic: normal touch/pain/proprioception Psychiatric: A+Ox3, euthymic affect Results & Data Diagnostic Findings MRI of right shoulder demonstrates some level of rotator cuff tendinopathy without any full-thickness tear. There is degenerative labral tearing some biceps tendinopathy with subluxation of the biceps. With regard to the arthritis there is multiple subchondral cysts both sides of the joint.
[~2024-11-19 10:55] MED LIST changes: -ATOR-22 PO; +BUPIVACAINE 0.5 % 5 MG/1 ML PF 10ML VIAL ONE; -CALCTAB5 PO; -FENOPROFEN PO; -MULT-506 PO
[2024-11-19] MEDS ORDERED: HYDROmorphone INJ 1 MG/ML SYRINGE IV PRN (10:58)
[2024-11-19] MEDS ORDERED: PROMETHAZINE HCL 6.25 MG in SODIUM CHLORIDE 0.9% 50 ML IV PRN (10:58)
[2024-11-19] MEDS ORDERED: ATROPINE SULFATE 0.1 MG/ML 10ML SYR IV PRN (10:58)
[2024-11-19] MEDS ORDERED: ePHEDrine sulfate 50 MG/ML AMP IV PRN (10:58)
[2024-11-19] MEDS ORDERED: ONDANSETRON INJ 2 MG/ML 2 ML VIAL IV PRN ×2 (10:58→17:50)
[2024-11-19] MEDS ORDERED: fentaNYL citrate PF 100 MCG/2 ML VIAL IV PRN (10:58)
[2024-11-19] MEDS: dexAMETHasone**PF** 10 MG/ML VIAL IV SCH (11:35)
[2024-11-19] MEDS: GABAPENTIN 300 MG CAP PO SCH (11:35)
[2024-11-19] MEDS: METOCLOPRAMIDE HCL 10 MG TABLET PO SCH (11:35)
[2024-11-19] MEDS: ACETAMINOPHEN 500 MG TAB PO SCH ×2 (11:35→23:02)
[2024-11-19] MEDS: CeleBREX 200 MG CAP PO SCH (11:35)
[2024-11-19] MEDS: FAMOTIDINE 20 MG TAB PO SCH (11:35)
[2024-11-19] MEDS: LR 15ML/HR IV SCH (11:36)
[2024-11-19] MEDS: LR 60ML/HR IV SCH (11:36)
[2024-11-19] MEDS ORDERED: ePHEDrine sulfate 50 MG/5 ML SYR ONE (12:15)
[2024-11-19] MEDS ORDERED: ROCURONIUM BROMIDE 10 MG/ML 5 ML VIAL IV ONE (12:15)
[2024-11-19] MEDS ORDERED: PHENYLEPHRINE 100MCG/ML 5ML SYR ONE (12:15)
[2024-11-19] MEDS ORDERED: ONDANSETRON INJ 2 MG/ML 2 ML VIAL ONE (12:15)
[2024-11-19] MEDS ORDERED: PROPOFOL IV EMULSION 10 MG/ML 20 ML VIAL IV ONE (12:15)
[2024-11-19] MEDS ORDERED: MIDAZOLAM HCL 1 MG/ML 2ML VIAL ONE (12:15)
[2024-11-19] MEDS ORDERED: SUGAMMADEX SODIUM 200 MG/2 ML VIAL IV ONE ×2 (12:16→16:11)
[2024-11-19] MEDS ORDERED: fentaNYL citrate PF 100 MCG/2 ML VIAL ONE ×2 (12:16→15:13)
--- NOTE | 2024-11-19 12:56 | History & Physical Bridge Note ---
Date of Service November 19, 2024 History & Physical Bridge Note I have examined the patient, reviewed the History & Physical and in the interval since the performance of the History & Physical I have noted the following changes of clinical significance: no changes noted
[2024-11-19] MEDS: TRANEXAMIC ACID 1,000 MG **IV Pre-op IV SCH (13:16)
[2024-11-19] MEDS: ceFAZolin 2000MG 2,000 MG/15 ML SYR IV SCH ×2 (13:29→23:02)
[2024-11-19] MEDS ORDERED: ePHEDrine sulfate 50 MG/ML AMP ONE (13:54)
[2024-11-19] MEDS: TRANEXAMIC ACID 1,000 MG **IV Intra-op IV SCH (15:15)
--- NOTE | 2024-11-19 16:26 | Operative Report ---
Post Operative Report Pre & Post Diagnosis Operation Date: 11/19/24 12:40 Pre-Op Diagnosis: Right Shoulder Osteoarthritis, rotator cuff tendinopathy partial tear rotator cuff and biceps tendinopathy Post-Op Diagnosis: Right Shoulder Osteoarthritis, rotator cuff tendinopathy with small bursal sided partial tear rotator cuff supraspinatus without full-thickness tear and biceps tendinopathy I identified the patient and participated in the time-out.: Yes Procedure Operation Date: 11/19/24 12:40 Actual Procedures p Right anatomic total Shoulder Arthroplasty, Biceps Tenodesis(Right) - Flaquito Sloan MD s Right Shoulder Rotator Cuff Repair with Regenten bio inductive type I collagen implant(Right) - Flaquito Sloan MD Surgeon Flaquito Sloan MD Steamer Tender Sukhdev CUADRA Estimated Blood Loss 75 Findings Consistent with Post-Op Diagnosis Specimens Humeral head Drains 2 Hemovac Anesthesia Type General Regional Complications none Disposition Disposition: Recovery Room Indications 74 female with severe bilateral shoulder pain. Right shoulder worse than left. Radiographs and MRI demonstrates severe glenohumeral osteoarthritis [id number] glenohumeral joint with large osteophytes about the glenoid with grade 4 [id number] with central type concentric wear pattern and some bone loss. Patient has chronic subchondral cystic changes both sides of the joint. Patient has a partial tear of the supraspinatus rotator cuff but no full-thickness tear identified. There is some chronic biceps tenosynovitis tendinopathy possible subluxation of biceps tendon. Description of Procedure The patient was taken to the operating room and anesthetized under a general and regional block anesthesia. A towel roll was placed under the medial border of the scapula of the right shoulder. The patient's head was placed on a foam headrest and protective eyewear was placed and the extremities were well padded. TEDS and SCDs applied. The arm was draped free in order to manipulate the shoulder as necessary. The shoulder exam demonstrated [id number] crepitation with 30 degrees external rotation but abduction to 90 degrees and forward flexion to 140 degrees. The shoulder was sterilely prepped and draped in the usual sterile fashion. An anterior deltopectoral approach was performed. A longitudinal incision was made in the interval. The skin was incised sharply and subcutaneous tissues dissected down to the fascia. The cephalic vein was identified and retracted laterally with the deltoid. Any crossing veins were tied off with silk ties and divided. The clavipectoral fascia was divided at the lateral margin of the conjoined tendon and divided up to the level of the coracoacromial ligament which was preserved. The upper 1 cm of the pectoralis was released for inferior exposure. The biceps tendon findings demonstrated chronic tenosynovitis with fluid collection around the biceps tendon and tendinopathy up in the proximal bicipital groove and some subluxation into some degenerative undersurface tearing of the subscapularis. The subscapularis outer surface was intact and the supraspinatus had a bursal sided partial tear of the rotator cuff which was located on the superior surface of the tendon about a centimeter medial to the attachment to the greater tuberosity. It was around superficial defect in the tendon tissue about 6 mm in diameter. No full- thickness tear was identified. The infraspinatus tendon was intact teres minor was intact.. There was subacromial bursitis and this was resected.. The circumflex vessels were identified and tied off with silk ties and divided laterally. The fibers and subscapularis were split longitudinally at the level of the circumflex vessels down to the capsule and then reflected off the inferior capsule using a Kitner elevator. The axillary nerve was identified with a tug test and protected with a blunt Jonn retractor. The rotator interval was opened up and extended down to the glenoid. The biceps tendon was identified and tenodesed to the pectoralis tendon with [id number] #2 FiberWire sutures in the proximal biceps was resected. The subscapularis tendon was taken down with a trans-tendinous incision leaving a cuff of tissue for repair on the lesser tuberosity. The incision was carried down through the tendon and the capsule and a #1 Vicryl suture was placed into the free end of the subscapularis tendon. I did debride the proximal area of degenerative undersurface tear. The capsule was subperiosteally dissected off the inferior neck of the humerus exposing the humeral osteophytes which demonstrated moderately large osteophytes extending from anterior to posterior. The osteophytes were excised with an artist chisel and a rongeur. The capsular release along the inferior neck of the humerus was completed. Humerus was completely eburnated bone some bone wear not flattened. The humerus was then retracted posterior to the glenoid with a Fukuda retractor. The remainder of the biceps tendon and labrum were resected. The glenoid findings demonstrated complete eburnation of bone with concentric wear. No articular cartilage present. There was a large unstable anterior osteophyte and a moderate large posterior osteophyte or calcification of the posterior labrum potentially.. I did an anterior inferior and posterior inferior release with electrocautery on bone and a Carranza elevator with the axillary nerve continuing to be protected with the blunt Hohmann retractor inferiorly. Did resect a large anterior osteophyte which did create smaller glenoid then templated but a small component size fit over the entire central region of the glenoid with satisfactory alignment of screws into the bone of the vault. When the releases were completed and the humeral head was exposed with some extension and external rotation and in anatomic head cut was made using the oscillating saw. The Tornier ascend flex total shoulder arthroplasty was used including the Cortiloc pegged glenoid component. Attention was first taken to preparation of the humeral shaft. A centralizing awl was used followed by broaches up to the appropriate size. The trial broach was left in place and a cut protector was placed. The humerus was then retracted posterior to the glenoid using a Bankart retractor anteriorly and blunt Jonn and posterior Tornier glenoid retractor. A central drill hole was made into the glenoid. The glenoid was sized for a size small 30 radius Cortiloc glenoid component. The glenoid was reamed and the central drill widened and the guide for the 3 peripheral peg holes was placed in the peg holes were drilled and a trial component was placed with a tight fit. The trial was removed and the glenoid was irrigated with pulsatile lavage antibiotic solution and the drill holes were dried and packed with epinephrine-soaked tampons for hemostasis. The Palacos G cement was vacuum mixed. The final component was cemented into position and held in position with pressure until the cement cured. A humeral head trial was placed. A trial reduction was performed and the shoulder was stable. The trial was removed and the humerus and canal were irrigated with pulsatile saline solution. 3 drill holes were made into the hard bone in the bicipital groove lateral to the lesser tuberosity and 3 #5 FiberWire transosseous sutures were placed for repair of the subscapularis with Geoff - Williams suture technique. After further irrigation of the canal and the final components were assembled. The final components were the size to be standard flex stem with a 46 x 17 low offset humeral head, Tornier implant.. The implant was then impacted into the humerus with a tight press-fit. The humerus was reduced to the glenoid and stability verified. The joint was then irrigated with Xperience . The subscapularis was repaired with the #5 FiberWire sutures in a Geoff-Williams suture technique and lateral row fixation with [id number] #2 FiberWire in the soft tissue. The rotator interval was closed and maximal external rotation. The pectoralis was then closed with [id number] #2 FiberWire suture. The sutures were passed through the biceps tendon as well to reinforce the biceps tenodesis. The rotator cuff tear was then addressed. I chose to place a Regeneten type I bio inductive collagen implant over the area of tendinopathy to cover the small defect completely. A large implant was utilized and placed over the supraspinatus and sutured around the periphery of the implant to the rotator cuff with 2-0 Vicryl sutures. The implant was stable with passive range of motion. Futher irrigation with Xperience was performed and 2 Hemovac drains were placed. The deltopectoral interval was closed with [id number] #1 Vicryl sutures. The subcutaneous tissues were closed with interrupted 2-0 Vicryl and the skin was closed with subha and a sterile Silverlon dressing was applied. The patient tolerated the procedure well. Sukhdev CUADRA my physician central supply assistant, assisted in soft tissue retraction instrument management suture management graft application and assisted in the subcutaneous and skin closure and will participate in the postoperative care the patient. I attest to the content of the Intraoperative Record and any orders documented therein. Any exceptions are noted below.
--- NOTE | 2024-11-19 17:05 | Anesthesiology Progress Note ---
Date of Service November 19, 2024 Anesthesia Post Procedure Vital Signs Vital Signs: Temp Pulse Pulse Resp BP Pulse Ox O2 Del Method 11/19/24 16:50 88 16 123/65 96 Oxymask 11/19/24 16:40 36.4 C L 103 H 21 107/71 95 Oxymask 11/19/24 11:25 36.9 C 72 18 179/91 H 98 Room Air O2 Flow Rate 11/19/24 16:50 8 11/19/24 16:40 8 11/19/24 11:25 Transfer of Care Handoff Completed per policy Notes Mental Status: alert / awake / arousable and participated in evaluation Patient Amnestic to Procedure: Yes Nausea / Vomiting: improving with treatment Pain: adequately controlled and improving with treatment Airway Patency, RR, SpO2: stable & adequate BP & HR: stable & adequate Hydration State: stable & adequate Anesthetic Complications: no major complications apparent and Pt Satisfied with anesthetic care Notes: Pt interscalene block is functioning well. Arm in sling
--- NOTE | 2024-11-19 17:27 | XRay Report ---
Clinical History: Postoperative examination 3 views of the right shoulder are submitted for review. Findings: No fracture is seen. There is a right glenohumeral arthroplasty in a speckled position. There is mild acromial clavicular osteoarthritis. No other osseous abnormality is identified. Surgical skin subha and a surgical drain are present Impression: Right shoulder replacement Electronically signed by Espinoza Sotelo 11-19-2024 5:27 PM
[2024-11-19] MEDS ORDERED: KETOROLAC TROMETHAMINE 15 MG/ML VIAL IV PRN (17:50)
[2024-11-19] MEDS ORDERED: ALUMINUM/MAGNESIUM SUSP 30 ML UDC PO PRN (17:50)
[2024-11-19] MEDS ORDERED: bisacodyL 10 MG SUPP PR PRN (17:50)
[2024-11-19] MEDS ORDERED: HYDROmorphone INJ 0.5 MG/0.5 ML SYR IV PRN (17:50)
[2024-11-19] MEDS ORDERED: diphenhydrAMINE Capsule 25 MG CAP PO PRN (17:50)
[2024-11-19] MEDS ORDERED: MAGNESIUM HYDROXIDE SUSP 30 ML UDC PO PRN (17:50)
[2024-11-19] MEDS ORDERED: oxyCODONE HCL IR 5 MG TAB (IMMEDIATE RELEASE) PO PRN (17:50)
[2024-11-19] MEDS ORDERED: METOCLOPRAMIDE HCL INJ 5 MG/ML 2 ML VIAL IV PRN (17:50)
[2024-11-19] MEDS ORDERED: NALOXONE HCL 0.4 MG/1 ML VIAL/CARP IV PRN (17:50)
[2024-11-19 17:53] VITALS: RESP 16
[2024-11-19] MEDS: EPINEPHrine HCL INJ 10 MG/10 ML VIAL ONE (18:42)
[2024-11-19] MEDS: LOSARTAN POTASSIUM 50 MG TAB PO SCH (20:31)
[2024-11-19] MEDS: DOCUSATE SODIUM 100 MG CAP PO SCH (20:31)
[2024-11-19] MEDS: MULTIVITAMIN TAB PO SCH (20:31)
[2024-11-19] MEDS: ASCORBIC ACID 500 MG TAB PO SCH (20:31)
[2024-11-19] MEDS: ASPIRIN 81 MG ECTAB PO SCH (20:31)
[2024-11-19] MEDS: ADVANCED PROBIOTIC 625 MG CAPSULE PO SCH (20:31)
[2024-11-19] MEDS: SENNA 8.6 MG TAB PO SCH (20:31)
[2024-11-19] MEDS: TRANEXAMIC ACID / 0.7% NACL 1,000 MG/100 ML BAG IV SCH (23:02)
[2024-11-20 07:05] VITALS: BP 131/73; PULSE 74; TEMP 97.5; O2SAT 93
[2024-11-20 07:14] LABS: Basophils # (auto) 0.02 K/uL (0.00-0.20); Basophils % (auto) 0.1 %; Hematocrit (blood only) 36.6 % (37.0-47.0); Immature Granulocytes # (auto) 0.05 K/uL (0.01-0.20); Immature Granulocytes % (auto) 0.3 %; Lymphocytes # (auto) 0.83 K/uL (1.20-3.40); Lymphocytes % (auto) 5.7 %; Mean Corpuscular Hemoglobin 27.8 pg (25.0-34.0); Mean Corpuscular Hgb Conc 32.8 g/dL (32.0-36.0); Mean Corpuscular Volume 84.7 fL (80.0-100.0); Mean Platelet Volume 9.9 fL (9.4-12.4); Monocytes % (auto) 6.2 %; Neutrophils # (auto) 12.82 K/uL (1.40-6.50); Neutrophils % (auto) 87.7 %; Platelet Count 236 K/uL (130-400); RDW Standard Deviation 36.6 fL (36.4-46.3); Red Blood Count 4.32 M/uL (4.20-5.40); White Blood Count 14.62 K/ul (4.8-10.8)
[2024-11-20 07:30] LABS: Calcium 9.5 mg/dl (8.6-10.3); Creatinine Clr Calc Pharmacy 48.5 ml/min; Potassium 4.7 mmol/L (3.5-5.1)
[2024-11-20] MEDS: CHOLECALCIFEROL 25 MCG (1000 UNITS) TAB PO SCH (07:37)
[2024-11-20] MEDS: dexAMETHasone 10 MG in SYRINGE 0 ML IV SCH (07:37)
[2024-11-20] MEDS: CALCIUM 600MG + VIT D 400 IU TAB PO SCH (07:37)
[2024-11-20] MEDS: ATORVASTATIN 20 MG TAB PO SCH (07:37)
--- NOTE | 2024-11-20 07:50 | Orthopedic Progress Note ---
Date of Service November 20, 2024 Assessment & Plan (1) Osteoarthritis of both glenohumeral joints: Plan: Severe end-stage bilateral glenohumeral osteoarthritis. Right shoulder also has biceps tendinopathy and a labral tear. Plan is to proceed with an anatomic right total shoulder replacement and labral debridement biceps tenodesis and add Regeneten bio inductive collagen implant to the rotator cuff to augment the tissue. Will required staged shoulder replacements. Postop day 1 right shoulder replacement biceps tenodesis rotator cuff repair with Regeneten implant. Recommend discharge home. She can start outpatient PT. She will follow-up 2 weeks in the office for staple removal. Admission and Anticipated Discharge Date Admission Date: November 19, 2024 Subjective Doing well still under effects of nerve block Review of Systems Review of Systems: Noncontributory no chest pain shortness of breath or medical issues Physical Exam Musculoskeletal: Dressing dry and intact, still some numbness from nerve block but good circulation. Results & Data Vital Signs (Past 12 Hours) Vital Signs Temp Pulse Resp BP Pulse Ox O2 Del Method 11/20/24 07:05 36.4 C L 74 16 131/73 93 Room Air 11/20/24 03:00 36.6 C 76 16 147/75 H 95 Room Air 11/19/24 23:07 36.5 C 83 16 101/63 93 Room Air 11/19/24 20:36 36.4 C L 86 16 108/66 91 Room Air Diagnostic Findings Well aligned anatomic total shoulder replacement
[2024-11-20] MEDS ORDERED: MULTIVITAMIN TAB PO SCH (09:00)
[2024-11-20] MEDS ORDERED: NON-FORMULARY MEDICATION (Biotin 1,000 mcg Tablet,Chewable) PO SCH (09:00)
--- NOTE | 2024-11-20 12:34 | Communication Note ---
Hospitalist consult not completed prior to discharge order being entered. Reviewed patient chart, vitals and labs. No acute medical needs. Discussed with primary team, consult not needed prior to discharge. Asked primary team to cancel consult.
== END 2024-11-20 10:57 | disposition home or self-care (01) ==
LOC: ASU 10:55 → 3E 10:55